=== PATIENT | female | born 1995 | race Caucasian/White ===

== ENCOUNTER 2020-06-01 15:30 | Emergency (ER) | payer OTHER ==
[2020-06-01 15:49] VITALS: BP 116/51; PULSE 73; TEMP 99; BMI 22.1
== END 2020-06-01 16:40 | disposition home or self-care (01) ==
LOC: FER 15:30
DX: S62.002A Unspecified fracture of navicular [scaphoid] bone of left wrist, initial encounter for closed fracture (principal); W19.XXXA Unspecified fall, initial encounter
CPT/HCPCS: 73110-TC-LT-FY; 73130-TC-LT-FY; 99283-25